=== PATIENT | female | born 1990 | race Caucasian/White ===

== ENCOUNTER 2017-09-05 21:39 | Observation (INO) | payer BC ==
[~2017-09-05] VITALS: Ht 160 cm; Wt 57.4 kg
[~2017-09-05 21:39] MED LIST: ATARAX,VISTARIL25 MG PO; ATARAX,VISTARIL50 MG PO; BACTRIM,SEPT1 TABLET PO; CRYSELLE1 EACH PO; FAMOTIDINE20 MG PO; FLOVENT 11120 INHALA; FLOVENT 11120 INHALA IH; FLUTICASONE PRO16 GM; LOW-OGESTREL1 TABLET; ONE DAILY FOR1 EAC1 PO; PAROXETINE HCL10 MG; PAROXETINE HCL20 MG PO; PATANOL OP100 DROP/5; PAXIL20 MG PO; PAXIL40 MG PO; PEPCID20 MG PO; PERCOCET 5/31 TABLET PO; PREDNISONE20 MG PO; PROVENTIL HFA6.7 GM; PROVENTIL HFA6.7 GM IH; ZITHROMAX500 MG PO; ZOFRAN ODT4 MG PO
[2017-09-06 00:53] LABS: HEMATOCRIT 36.1 % (36.0-46.0); HEMOGLOBIN 12.2 G/DL (11.9-15.5); MCH 28.9 PG (29.0-34.0); MCHC 33.8 G/DL (30.0-36.0); MCV 85.5 FL (83-99); PLATELET COUNT 174 K/uL (156-360); RBC DIS.WIDTH-CV 13.7 % (11.8-14.6); RBC DIS.WIDTH-SD 43.1 % (39-53); RED BLOOD COUNT 4.22 M/uL (3.80-5.20)
[2017-09-06 01:04] LABS: CHLORIDE 112 mEq/L (99-109); POTASSIUM 3.4 mEq/L (3.7-5.4); SODIUM 143 mEq/L (136-147)
[2017-09-06 01:06] LABS: GLUCOSE 112 mg/dL (70-99)
[2017-09-06 01:10] LABS: GFR ESTIMATE (CALCULATED) > 59 mL/min/
[2017-09-06 01:11] LABS: UREA NITROGEN (BUN) 11 mg/dL (9-23)
[2017-09-06 02:31] VITALS: BP 143/88
[2017-09-06 03:10] LABS: QUANTITATIVE HCG < 4.0 MIU/ML
[2017-09-06 04:37] VITALS: BP 118/58
[2017-09-06 06:17] LABS: BASOPHIL (%) 0.2 % (0-1); EOSINOPHIL (%) 0 % (0-5); HEMATOCRIT 34.4 % (36.0-46.0); HEMOGLOBIN 11.4 G/DL (11.9-15.5); IMMATURE GRANULOCYTE (%) 0.2 % (0.0-0.7); LYMPHOCYTE (%) 5.2 % (15-42); LYMPHOCYTE COUNT 0.3 K/uL (1.0-2.8); MCH 28.4 PG (29.0-34.0); MCHC 33.1 G/DL (30.0-36.0); MCV 85.6 FL (83-99); MONOCYTE COUNT 0.1 K/uL (0-0.8); NEUTROPHIL (%) 93.4 % (45-76); NEUTROPHIL COUNT 5.4 K/uL (1.8-6.4); PLATELET COUNT 174 K/uL (156-360); RBC DIS.WIDTH-CV 13.8 % (11.8-14.6); RBC DIS.WIDTH-SD 43.3 % (39-53); RED BLOOD COUNT 4.02 M/uL (3.80-5.20); WHITE BLOOD COUNT 5.8 K/uL (4.1-10.2)
[2017-09-06 06:34] LABS: CHLORIDE 112 MEQ/L (99-109); CREATININE 0.9 MG/DL (0.6-1.3); GFR ESTIMATE (CALCULATED) > 59 mL/min/; GLUCOSE 153 mg/dL (70-99); SODIUM 145 MEQ/L (136-147); UREA NITROGEN (BUN) 9 mg/dL (9-23)
[2017-09-06 06:39] LABS: POTASSIUM 4.1 MEQ/L (3.7-5.4)
[2017-09-06 07:29] VITALS: BP 112/55
[2017-09-06] MEDS ORDERED: PREDNISONE10 MG PO (11:24)
[2017-09-06] MEDS ORDERED: ADVAIR HFA120 INHALA IH (11:24)
[2017-09-06] MEDS ORDERED: VENTOLIN HFA18 GM IH (11:24)
[2017-09-06 12:13] VITALS: BP 120/64
== END 2017-09-06 13:14 | disposition home or self-care (01) ==
LOC: EDBD 21:39 → EME 21:39 → EDOF 09-06 01:18 → 5EAST 09-06 01:18 → ENRESERV 09-06 01:22 → 5EAST 09-06 02:13
PROVIDERS: Physician Assistant; Student in an Organized Health Care Education/Training Program
DX: J45.901 Unspecified asthma with (acute) exacerbation (principal); E87.6 Hypokalemia; J02.9 Acute pharyngitis, unspecified; R07.89 Other chest pain; Z91.018 Allergy to other foods
CPT/HCPCS: 70360; 71045; 80048; 80048 91; 84702; 85025; 85027; 86664; 86665; 94640; 94799; 99281; 99284; G0378; J1100; J2930; J7030